=== PATIENT | female | born 1955 | race African-American/Black ===

== ENCOUNTER 2018-12-04 10:26 | Emergency (ER) | payer OTHER ==
[~2018-12-04] VITALS: Ht 160 cm; Wt 66.0 kg
[2018-12-04] MEDS ORDERED: SODIUM CHLORIDE 0.9% 1,000 ML IV ONE (11:15)
[2018-12-04] MEDS ORDERED: DEXAMETHASONE 10 MG/ML VIAL IV ONE (11:15)
[2018-12-04 12:21] VITALS: BP 119/60
== END 2018-12-04 12:26 | disposition home or self-care (01) ==
LOC: ER 10:26
DX: H57.89 Other specified disorders of eye and adnexa (principal); T50.905A Adverse effect of unspecified drugs, medicaments and biological substances, initial encounter; Z85.038 Personal history of other malignant neoplasm of large intestine; Y92.89 Other specified places as the place of occurrence of the external cause
CPT/HCPCS: 96374; 99283; J1100; J7030; Z7610